=== PATIENT | female | born 1980 | race Caucasian/White ===

== ENCOUNTER 2018-05-27 17:00 | Outpatient (REF) | payer BC, SELFPAY ==
[2018-05-27 19:01] LABS: *AMPHETAMINES SCREEN URINE Negative (Negative); *BARBITURATES SCREEN URINE Negative (Negative); *BENZODIAZEPINES SCREEN URINE Negative (Negative); Cannabinoids THC Negative (Negative); Cocaine Screen,Urine Negative (Negative); METHADONE URINE SCREEN Negative (Negative); OPIATES URINE SCREEN Negative (Negative)
[2018-05-27 19:18] LABS: Tricyclic Antidepressants Negative (Negative)
[2018-06-01 14:35] LABS: Buprenorphine Negative; Norbuprenorphine Negative
== END 2018-05-27 17:20 ==
LOC: LBN 17:00
PROVIDERS: Visit Provider Advanced Practice Midwife
DX: Z34.91 Encounter for supervision of normal pregnancy, unspecified, first trimester (principal)
CPT/HCPCS: 80307; 87086

== ENCOUNTER 2018-05-31 09:29 | Outpatient (CLI) | payer BC, SELFPAY ==
[2018-05-31 09:49] LABS: Glucose,1 Hr (Glucola) 86 mg/dL (80-140)
[2018-05-31 11:01] LABS: TSH (W/Ref FT4) 1.36 uIU/mL (0.358-3.74)
== END 2018-05-31 09:49 ==
PROVIDERS: Visit Provider Advanced Practice Midwife
DX: Z34.91 Encounter for supervision of normal pregnancy, unspecified, first trimester (principal); Z01.84 Encounter for antibody response examination; Z68.32 Body mass index [BMI] 32.0-32.9, adult
CPT/HCPCS: 36415; 82950; 86850; 86900; 86901; 84443

== ENCOUNTER 2018-07-10 10:27 | Outpatient (CLI) | payer BC, SELFPAY ==
[2018-07-11 17:08] LABS: AFP 23.9 ng/mL; Cigarette smoking status non-smoker; GA used in risk estimate Scan estimate; IVF Pregnancy Yes; Initial or repeat testing Initial testing; Insulin dependent diabetes No; Maternal Weight 246 lbs; Number of Fetuses 1; Physician Phone Number 802-748-7300; Prev Pregnancy w/NTD No; RECOMMENDED FOLLOW UP None.; Results Summary Normal risk
== END 2018-07-10 10:47 ==
PROVIDERS: PCP Family Medicine; Visit Provider Advanced Practice Midwife
DX: Z34.92 Encounter for supervision of normal pregnancy, unspecified, second trimester (principal); Z36.89 Encounter for other specified antenatal screening
CPT/HCPCS: 36415; 82105

== ENCOUNTER 2018-07-26 00:29 | Outpatient (CLI) | payer BC, SELFPAY ==
--- NOTE | 2018-07-26 10:13 | DI.US_ITS ---
SYMPTOM/DIAGNOSIS: GROWTH AND ANATOMY, Z33.3 OB ULTRASOUND: There are no prior comparison exams. The fetus was in variable position. The placenta is anterior and left sided. The biometric measurements correspond to 20 weeks , zero days. No abnormalities are seen. The amniotic fluid amount appears visually normal. IMPRESSION: survey is within normal limits. Many abnormalities cannot be diagnosed. A normal exam does not exclude a congenital anomaly. Radiology No. [id number] LMP: Exam Date:07/26/18 [facility] wks days on EDC ([facility]) 12/21/18 Confirmed: HISTORY: GROWTH/ANATOMY ---- PREDICTED GESTATIONAL AGE NUMBER 18 +6 weeks with a range of 17 +6 week to 19 +6 weeks. 1 Determined by_XX__1STUS___LMP___HISTORY Info. pertaining to fetus # PLACENTA PRESENTATION Grade I Cephalic___ Anterior_XX__Posterior___ Breech____ Right Left__XX Transverse(head right___ Fundal___Low-lying___Previa___ Transverse(head left___ Varying___XX___ BIOMETRY AMNIOTIC FLUID BPD: 46 mm 19 +6 weeks Normal HC: 172 mm 19 +6 weeks AC: 145 mm 19 +6 weeks FL: 33 mm 20 +2 weeks AMNIOTIC FLUID INDEX >26 WK CRL: -- mm weeks Cisterna Magna: 33 mm CI: 80 RUQ: LUQ Cerebellum: 1.92 cm EFW: 330 grams 97% Percentile RLQ: LLQ Total: cms Composite AGE= 20 - wks EDC by US__12/13/18 BIOPHYSICAL PROFILE ANATOMY IDENTIFIED SCORE 0/2 Heart: 4-Chamber_X__Rate:BPM__130 BPM___ LVOT:__X RVOT:____X____ Amniotic Fluid(>2cms)____ Stomach:__X Kidneys:__X Respirations (>30 secs) Bladder:___X Post. Fossa:___X Body Flex/Extension 3 vessel cord:__X Ventricles:____X cord insertion:__X___ Lips:_X___ Extremity Flex/Extension spinal morphology:_X Nose:X Total Score= Palate:__X NS=not seen
== END 2018-07-26 00:49 ==
PROVIDERS: PCP Family Medicine; Visit Provider Advanced Practice Midwife
DX: Z34.92 Encounter for supervision of normal pregnancy, unspecified, second trimester (principal)
CPT/HCPCS: 76805

== ENCOUNTER 2018-10-02 09:52 | Outpatient (CLI) | payer BC, SELFPAY ==
[2018-10-02 10:16] LABS: HCT 36.3 % (36.0-46.0); HGB 12.1 g/dL (12.0-15.5); Mean Corp. HGB Concentration 33.3 g/dL (32.0-36.0); Mean Corpuscular Hemoglobin 30.9 pg (27.0-33.0); Mean Corpuscular Volume 92.8 fL (80-95); Mean Platelet Volume 10.1 fL (8.0-11.0); Platelet Count 153 x1000/uL (130-400); RBC 3.91 m/cumm (4.00-5.20); RBC Distribution Width 12.9 % (11.7-14.6)
[2018-10-02 10:23] LABS: Glucose,1 Hr (Glucola) 95 mg/dL (80-140)
== END 2018-10-02 10:12 ==
PROVIDERS: Advanced Practice Midwife; PCP Family Medicine; Visit Provider Nurse Practitioner
DX: Z34.92 Encounter for supervision of normal pregnancy, unspecified, second trimester (principal)
CPT/HCPCS: 36415; 82950; 85027

== ENCOUNTER 2018-11-04 01:38 | Outpatient (CLI) | payer BC, SELFPAY ==
--- NOTE | 2018-11-04 09:02 | DI.US_ITS ---
Many abnormalities cannot be diagnosed. A normal exam does not exclude a congenital anomaly. Radiology No. LMP: Exam Date: 11/04/18 [facility] wks days on EDC ([facility]) 12/21/18 Confirmed: HISTORY: NOEMÍ, EFW, SIZE GREATER THAN DATES PREDICTED GESTATIONAL AGE NUMBER 33.2 weeks with a range of 32.2 week to 34.2 weeks. 1 Determined by_X__1STUS___LMP___HISTORY Info. pertaining to fetus # PLACENTA PRESENTATION Grade I-II Cephalic__X_ Anterior_X__Posterior___ Breech____ Right Left___X____ Transverse(head right___ Fundal___Low-lying___Previa___ Transverse(head left___ Varying BIOMETRY AMNIOTIC FLUID BPD: 89 mm 35.5 weeks Normal HC: 319 mm 35.6 weeks AC: 329 mm 36.6 weeks FL: 73 mm 37.4 weeks AMNIOTIC FLUID INDEX >26 WK CRL: mm weeks Cisterna Magna: mm CI: 0.85 RUQ:__2.3____LUQ___5.0 Cerebellum: cm EFW: 3021 grams > chart measurment Percentile RLQ:_3.1____LLQ__4.9 Total:____15.2____cms Composite AGE= 36.4 wks EDC by US___11/28/18 BIOPHYSICAL PROFILE ANATOMY IDENTIFIED SCORE 0/2 Heart: 4-Chamber___Rate:BPM__153___ LVOT: RVOT: Amniotic Fluid(>2cms)____ Stomach:__X Kidneys: Respirations (>30 secs) Bladder: Post. Fossa: Body Flex/Extension 3 vessel cord: Ventricles: cord insertion: Lips:____ Extremity Flex/Extension spinal morphology: Nose: Total Score= The fetus is in cephalic position. The placenta is anterior. The biometric measurements correspond to 36 weeks 4 days which is 3 weeks greater than expected based on previous dating. The estimated eight is above the 99th percentile. The amniotic fluid index appears normal at 15.2. IMPRESSION: size and weight are greater than expected by previous dating by approximately 3 weeks.
== END 2018-11-04 01:58 ==
PROVIDERS: PCP Family Medicine; Visit Provider Advanced Practice Midwife
DX: O26.843 Uterine size-date discrepancy, third trimester (principal); Z34.93 Encounter for supervision of normal pregnancy, unspecified, third trimester
CPT/HCPCS: 76816

== ENCOUNTER 2018-11-06 09:58 | Outpatient (CLI) | payer BC, SELFPAY ==
[2018-11-06 10:19] LABS: Glucose,1 Hr (Glucola) 101 mg/dL (80-140)
[2018-11-06 10:22] LABS: Hemoglobin A1C 5.4 % (4.5-6.2)
== END 2018-11-06 10:18 ==
PROVIDERS: PCP Nurse Practitioner Family; Visit Provider Advanced Practice Midwife
DX: Z34.93 Encounter for supervision of normal pregnancy, unspecified, third trimester (principal); O09.523 Supervision of elderly multigravida, third trimester
CPT/HCPCS: 36415; 82950; 83036

== ENCOUNTER 2018-11-20 12:15 | Outpatient (REF) | payer BC, SELFPAY | END 2018-11-20 12:35 | LOC: LBN 12:15 | PROVIDERS: PCP Nurse Practitioner Family; Visit Provider Advanced Practice Midwife | DX: Z34.93 Encounter for supervision of normal pregnancy, unspecified, third trimester (principal); Z36.85 Encounter for antenatal screening for Streptococcus B | CPT/HCPCS: 87081 ==

== ENCOUNTER 2018-12-04 03:51 | Outpatient (CLI) | payer BC, SELFPAY ==
--- NOTE | 2018-12-04 08:50 | DI.US_ITS ---
Many abnormalities cannot be diagnosed. A normal exam does not exclude a congenital anomaly. Radiology No. LMP: Exam Date: [facility] wks days on EDC ([facility]) Confirmed: HISTORY: SIZE GREATER THAN DATES, MACROSOMIA, 036.60X0 PREDICTED GESTATIONAL AGE NUMBER 37.4 weeks with a range of 36.4 week to 38.4 weeks. 1 Determined by___1STUS___LMP_X__HISTORY Info. pertaining to fetus # PLACENTA PRESENTATION Grade II Cephalic__X_ Anterior_X__Posterior___ Breech____ Right Left__X Transverse(head right___ Fundal___Low-lying___Previa___ Transverse(head left___ Varying BIOMETRY AMNIOTIC FLUID BPD: 96 mm 39.2 weeks Normal HC: 342 mm 39.3 weeks AC: 350 mm 38.6 weeks FL: 79 mm 40.3 weeks AMNIOTIC FLUID INDEX >26 WK CRL: mm weeks Cisterna Magna: mm CI: 87.3 RUQ:___6.31___LUQ___4 Cerebellum: cm EFW: 3765 grams 94th Percentile RLQ:_4.21 LLQ__2.16 Total:__16.7 cms Composite AGE= 39.4 wks EDC by US____12/07/18 BIOPHYSICAL PROFILE ANATOMY IDENTIFIED SCORE 0/2 Heart: 4-Chamber___Rate:BPM__150___ LVOT: RVOT: Amniotic Fluid(>2cms)____ Stomach: Kidneys: Respirations (>30 secs) Bladder: Post. Fossa: Body Flex/Extension 3 vessel cord: Ventricles: cord insertion: Lips:____ Extremity Flex/Extension spinal morphology: Nose: Total Score= Palate: NS=not seen Please see the OB ultrasound worksheet for complete details.
== END 2018-12-04 04:11 ==
PROVIDERS: PCP Nurse Practitioner Family; Visit Provider Advanced Practice Midwife
DX: O36.63X1 Maternal care for excessive fetal growth, third trimester, fetus 1 (principal)
CPT/HCPCS: 76816

== ENCOUNTER 2018-12-18 10:45 | Inpatient (IN) | payer BC, SELFPAY ==
[2018-12-18 12:15] LABS: HCT 38.2 % (36.0-46.0); HGB 12.6 g/dL (12.0-15.5); Mean Corpuscular Hemoglobin 30.7 pg (27.0-33.0); Mean Corpuscular Volume 92.9 fL (80-95); Mean Platelet Volume 10.9 fL (8.0-11.0); Platelet Count 163 x1000/uL (130-400); RBC 4.11 m/cumm (4.00-5.20); RBC Distribution Width 13.3 % (11.7-14.6); White Blood Cell Count 10.09 k/cumm (4.4-10.8)
[2018-12-18] MEDS: Oxytocin 10 UNITS/ML VIAL IM (16:45)
[2018-12-18] MEDS: Lidocaine 1% Pres-Free 5 ML VIAL IJ (18:32)
[2018-12-19 07:59] LABS: HCT 35.9 % (36.0-46.0); HGB 11.9 g/dL (12.0-15.5); Mean Corp. HGB Concentration 33.1 g/dL (32.0-36.0); Mean Corpuscular Hemoglobin 30.8 pg (27.0-33.0); Platelet Count 173 x1000/uL (130-400); RBC 3.86 m/cumm (4.00-5.20); RBC Distribution Width 13.2 % (11.7-14.6)
== END 2018-12-19 15:30 | disposition home or self-care (01) | DRG 807 ==
PROVIDERS: Admitting Provider Advanced Practice Midwife; PCP Nurse Practitioner Family; Visit Provider Advanced Practice Midwife
DX: O70.0 First degree perineal laceration during delivery (principal); Z37.0 Single live birth; O77.0 Labor and delivery complicated by meconium in amniotic fluid; O63.0 Prolonged first stage (of labor); Z3A.39 39 weeks gestation of pregnancy; O87.4 Varicose veins of lower extremity in the puerperium
CPT/HCPCS: 36415; 85027; 86850; 86900; 86901; G0378; J2590

== ENCOUNTER 2020-07-08 12:13 | Outpatient (REF) | payer BC, SELFPAY ==
--- NOTE | 2020-07-08 11:00 | PAPFT_PTH ---
PATIENT: Cira Batista LOC: [facility] U#:[id number] AGE/SX: 39/F ROOM: RE07/08/[address]: Dory Romero RN : 1980 BED: DIS: 07/08/2020 SPEC #: [id number] RECD: 07/08/20 17:46 STATUS: ALTAGRACIA REQ #: [id number] REMEDIOS: 07/08/20 11:[address]: Dory Romero DEPT: [facility] Cytology RECD BY: Suzy Connell ENTERED: 07/08/20 17:46 SP TYPE: PAPFT OTHR DR: Nusrat Tapia Tissues: 1 - CX/ENDOCX FOR PAP SMEARS Procedures: PAP THIN PREP/UVM Screening HPV DNA PROBE Comments: [id number] ([id number] [facility])
[2020-07-08 15:23] LABS: *AMPHETAMINES SCREEN URINE Negative (Negative); *BARBITURATES SCREEN URINE Negative (Negative); *BENZODIAZEPINES SCREEN URINE Negative (Negative); Cannabinoids THC Negative (Negative); Cocaine Screen,Urine Negative (Negative); METHADONE URINE SCREEN Negative (Negative); OPIATES URINE SCREEN Negative (Negative)
[2020-07-08 15:48] LABS: Tricyclic Antidepressants Negative (Negative)
[2020-07-11 01:58] LABS: Chlamydia amplified RNA Negative (Negative); N gonorrhoeae amplified RNA Negative (Negative); Source CERVIX
[2020-07-15 11:47] LABS: Buprenorphine Negative; Norbuprenorphine Negative
== END 2020-07-08 12:33 ==
LOC: LBN 12:13
PROVIDERS: PCP Nurse Practitioner Family; Visit Provider Advanced Practice Midwife
DX: Z12.4 Encounter for screening for malignant neoplasm of cervix (principal); Z11.51 Encounter for screening for human papillomavirus (HPV); Z34.91 Encounter for supervision of normal pregnancy, unspecified, first trimester
CPT/HCPCS: 80307; 87491; 87591; 88142; 87086; 87624

== ENCOUNTER 2020-08-05 03:25 | Outpatient (CLI) | payer BC, SELFPAY ==
[2020-08-05 12:17] LABS: Abs Immature Grans 0.01 10^3/uL (0.0-0.06); Absolute Basophil Count 0.01 10^3/uL (0.0-0.2); Absolute Eosinophil Count 0.11 10^3/uL (0.0-0.7); Absolute Lymphocyte Count 1.67 10^3/uL (1.2-3.4); Absolute Monocyte Count 0.44 10^3/uL (0.1-0.8); Absolute Neutrophil Count 4.75 10^3/uL (1.2-6.7); Basophils % 0.1; Eosinophils % 1.6; HCT 35.9 % (36.0-46.0); HGB 11.9 g/dL (11.2-15.7); Immature Grans % 0.1; Lymphocytes % 23.9; MCH 30.6 pg (27.0-33.0); MCHC 33.1 % (32.0-36.0); MCV 92.3 fL (80-95); MPV 9.9 fL (8.0-11.0); Monocytes % 6.3; Nucleated RBC 0 %; Platelet Count 177 10^3/uL (130-400); RBC 3.89 10^6/uL (3.93-5.22); RDW 12.2 % (11.7-14.6); RDW-SD 41.4 fL; WBC 6.99 10^3/uL (4.4-10.8)
[2020-08-05 12:25] LABS: Glucose,1 Hr (Glucola) 100 mg/dL (80-140)
[2020-08-05 12:54] LABS: TSH (W/Ref FT4) 0.98 uIU/mL (0.36-3.74)
[2020-08-06 10:06] LABS: HIV-1/2 Ag & Ab Screen Negative (Negative)
[2020-08-06 10:26] LABS: Hepatitis C Ab w Rflx HCV PCR Negative (Negative)
[2020-08-06 11:21] LABS: Varicella IgG Antibody Positive (See Note)
[2020-08-06 11:25] LABS: Rubella IgG Ab (UVM) Positive (See Note)
[2020-08-06 16:50] LABS: Syphilis Total Ab w/Reflex Nonreactive (Nonreactive)
== END 2020-08-05 03:45 ==
PROVIDERS: PCP Nurse Practitioner Family; Visit Provider Advanced Practice Midwife
DX: Z34.91 Encounter for supervision of normal pregnancy, unspecified, first trimester (principal); Z01.84 Encounter for antibody response examination; Z11.4 Encounter for screening for human immunodeficiency virus [HIV]; Z11.59 Encounter for screening for other viral diseases
CPT/HCPCS: 36415; 82950; 86787; 86803; 86850; 86900; 86901; 87389; 84443; 85025; 86762; 86780

== ENCOUNTER 2020-09-02 01:49 | Outpatient (CLI) | payer BC, SELFPAY ==
--- NOTE | 2020-09-02 07:15 | DI.US_ITS ---
EXAM: US OB 2-3 TRIMESTER CLINICAL HISTORY: routine pnc,Z34.90. TECHNIQUE: Transabdominal obstetrical ultrasound was performed. COMPARISON: US US OB NOEMÍ weight from 12/04/2018 FINDINGS: There is a single viable intrauterine gestation with cardiac activity identified-139 bpm. Amniotic fluid: There is a normal amount of amniotic fluid. Placental location: The placenta is anterior grade 1,with no evidence of placenta previa. ANATOMY: A 3 vessel umbilical cord is seen. A four-chamber cardiac view was obtained. Right and left ventricular outflow tracts were imaged. There are no obvious abnormalities of the spinal column evident. There is no obvious abnormal ity of the anterior abdominal wall. stomach and urinary bladder are identified and there is no evidence of hydronephrosis. No abnormalities of the upper lip region are identified. No evidence of choroid plexus cysts i n the brain. Dating parameters place this at approximately 18 weeks and 6 days gestational age. BPD measures 18 weeks and 4 days HC measures 18 weeks and 6 days AC measures 19 weeks and 0 days FL measures 19 weeks and 0 days Estimated weight is 267 gm-0 pounds 9 ounces Fetus is at the 61st percentile on the Hadlock scale. IMPRESSION:: Single viable intrauterine gestation which is approximately 18 weeks and 6 days gestati onal age, implying an SAMANTHA of January 28, 2021. There are no obvious anomalies evident on today's study. The placenta is anterior with no evidence of placenta previa. There is a normal amount of amniotic fluid. DATA REPOSITORY:
== END 2020-09-02 02:09 ==
PROVIDERS: PCP Nurse Practitioner Family; Visit Provider Advanced Practice Midwife
DX: Z34.92 Encounter for supervision of normal pregnancy, unspecified, second trimester (principal)
CPT/HCPCS: 76805

== ENCOUNTER 2020-09-02 03:26 | Outpatient (CLI) | payer BC, SELFPAY ==
[2020-09-03 08:20] LABS: Hepatitis B Surface Ag Negative (Negative)
[2020-09-07 11:11] LABS: Calculated age at EDD 40 years; Cigarette smoking status non-Smoker; GA used in risk estimate Scan estimate; IVF Pregnancy Yes; Initial or repeat testing Initial testing; Insulin dependent diabetes No; Maternal Weight 243 lbs; Number of Fetuses 1; Physician Phone Number 802-748-7300; Prev Pregnancy w/NTD No; RECOMMENDED FOLLOW UP None.; Results Summary Normal risk
== END 2020-09-02 03:46 ==
PROVIDERS: PCP Nurse Practitioner Family; Visit Provider Advanced Practice Midwife
DX: Z34.92 Encounter for supervision of normal pregnancy, unspecified, second trimester (principal); Z36.89 Encounter for other specified antenatal screening; Z11.59 Encounter for screening for other viral diseases
CPT/HCPCS: 36415; 87340; 82105

== ENCOUNTER 2020-11-25 02:56 | Outpatient (CLI) | payer BC, SELFPAY ==
[2020-11-25 10:23] LABS: HCT 34.2 % (36.0-46.0); HGB 11.3 g/dL (11.2-15.7); MCH 31.3 pg (27.0-33.0); MCV 94.7 fL (80-95); Platelet Count 133 10^3/uL (130-400); RBC 3.61 10^6/uL (3.93-5.22); RDW 12.7 % (11.7-14.6); WBC 8.25 10^3/uL (4.4-10.8)
[2020-11-25 10:30] LABS: Glucose,1 Hr (Glucola) 97 mg/dL (80-140)
== END 2020-11-25 02:57 | disposition home or self-care (01) ==
LOC: LBO 02:56
PROVIDERS: PCP Nurse Practitioner Family; Visit Provider Advanced Practice Midwife
DX: Z34.93 Encounter for supervision of normal pregnancy, unspecified, third trimester (principal); Z3A.30 30 weeks gestation of pregnancy
CPT/HCPCS: 36415; 82950; 85027

== ENCOUNTER 2021-01-07 13:56 | Outpatient (REF) | payer BC, SELFPAY ==
[2021-01-07 15:29] LABS: *AMPHETAMINES SCREEN URINE Negative (Negative); *BARBITURATES SCREEN URINE Negative (Negative); *BENZODIAZEPINES SCREEN URINE Negative (Negative); Cannabinoids THC Negative (Negative); Cocaine Screen,Urine Negative (Negative); METHADONE URINE SCREEN Negative (Negative); OPIATES URINE SCREEN Negative (Negative)
[2021-01-07 15:45] LABS: Tricyclic Antidepressants Negative (Negative)
[2021-01-13 09:34] LABS: Buprenorphine Negative ng/mL (Cutoff: 5.0); Norbuprenorphine Negative ng/mL (Cutoff: 2.5)
== END 2021-01-07 13:57 | disposition home or self-care (01) ==
LOC: LBN 13:56
PROVIDERS: PCP Nurse Practitioner Family; Visit Provider Advanced Practice Midwife
DX: Z34.93 Encounter for supervision of normal pregnancy, unspecified, third trimester (principal)
CPT/HCPCS: 80307; 87081

== ENCOUNTER 2021-01-11 08:32 | Outpatient (CLI) | payer BC, SELFPAY ==
[2021-01-11 10:31] VITALS: BP 121/61; PULSE 86; TEMP 36.9
[2021-01-11 10:54] VITALS: BP 121/61; PULSE 86
--- NOTE | 2021-01-11 11:43 | W.OBNST ---
Date of service: 01/11/21 Time of Service: 11:44 NST Evaluation Reason for NST Reasons for Nonstress Test: ADVANCED MATERNAL AGE Gestational Age Gestational Age in Weeks and Days: 37 Weeks and 3Days Test and Monitor Explained Test/Monitor Explained: Test Explained, Monitor Explained and Patient Verbalized Understanding Vital Signs Blood Pressure: 121/61 Pulse: 86 Temperature: 98.4 F Urine Results Urine Protein: Positive Urine Ketones: Negative Urine Glucose: Negative Urine Blood: Positive NST Information Date on Monitor: 01/11/21 Time on Monitor: 10:40 Date off Monitor: 01/11/21 Time off Monitor: 11:29 Total Time on Monitor: 49 NST Interventions: PO Hydration NST Evaluation Patient States Movement: Present FHR Baseline: 140 Variability: Moderate 6-25 bpm Accelerations: 10x10 Decelerations: None NST Results: Reactive Note NST Note Note: Fetus very active with prolonged accelerations over 150. Baseline came down to 135 with accellerations over 150. Returning 01/14 for NST. Induction planned for 01/21. NST Reviewed and Verified by: Vanesa Martinez
[2021-01-11 11:45] VITALS: BP 121/61; PULSE 86; TEMP 36.9
== END 2021-01-11 11:30 | disposition home or self-care (01) ==
LOC: BCD 08:32 → OBS 08:39
PROVIDERS: PCP Nurse Practitioner Family; Visit Provider Advanced Practice Midwife
DX: O09.523 Supervision of elderly multigravida, third trimester (principal); Z3A.37 37 weeks gestation of pregnancy
CPT/HCPCS: 59025

== ENCOUNTER 2021-01-14 07:23 | Outpatient (CLI) | payer BC, SELFPAY ==
[2021-01-14 10:06] VITALS: BP 103/61; PULSE 98; TEMP 208.9; TEMP 98.3
[2021-01-14 10:13] VITALS: BP 103/61; PULSE 98
--- NOTE | 2021-01-14 10:35 | W.OBNST ---
Date of service: 01/14/21 Time of Service: 10:35 NST Evaluation Reason for NST Reasons for Nonstress Test: ADVANCED MATERNAL AGE Gestational Age Gestational Age in Weeks and Days: 37 Weeks and 5Days Test and Monitor Explained Test/Monitor Explained: Test Explained, Monitor Explained and Patient Verbalized Understanding Vital Signs Blood Pressure: 103/61 Pulse: 98 Temperature: 208.9 F NST Information Date on Monitor: 01/14/21 Time on Monitor: 10:15 NST Interventions: None NST Evaluation Patient States Movement: Present Variability: Moderate 6-25 bpm Accelerations: 15x15 Decelerations: None NST Results: Reactive Note NST Note Note: Feeling well. No complaints. NST due to AMA. will return for NST on 01/17. Today's test is reactive and reassuring CAT MARCELLE NST Reviewed and Verified by: Vanesa Cardoza
[2021-01-14 10:36] VITALS: BP 103/61; PULSE 98; TEMP 208.9; TEMP 98.3
== END 2021-01-14 10:41 | disposition home or self-care (01) ==
LOC: BCD 07:27 → OBS 10:05
PROVIDERS: PCP Nurse Practitioner Family; Visit Provider Advanced Practice Midwife
DX: O09.523 Supervision of elderly multigravida, third trimester (principal); Z3A.37 37 weeks gestation of pregnancy
CPT/HCPCS: 59025

== ENCOUNTER 2021-01-18 07:58 | Outpatient (CLI) | payer BC, SELFPAY ==
[2021-01-18 10:12] VITALS: BP 121/71; PULSE 92; TEMP 37.6
[2021-01-18 10:36] VITALS: BP 121/71; PULSE 92
[2021-01-18 19:15] VITALS: BP 121/71; PULSE 92; TEMP 37.6
--- NOTE | 2021-01-18 19:15 | W.OBNST ---
Date of service: 01/18/21 Time of Service: 19:15 NST Evaluation Reason for NST Reasons for Nonstress Test: ADVANCED MATERNAL AGE Gestational Age Gestational Age in Weeks and Days: 38 Weeks and 3Days Test and Monitor Explained Test/Monitor Explained: Test Explained, Monitor Explained and Patient Verbalized Understanding Vital Signs Blood Pressure: 121/71 Pulse: 92 Temperature: 99.7 F NST Information Date on Monitor: 01/18/21 Time on Monitor: 10:23 Date off Monitor: 01/18/21 Time off Monitor: 11:08 Total Time on Monitor: 45 NST Interventions: PO Hydration NST Evaluation Patient States Movement: Present FHR Baseline: 125 Variability: Moderate 6-25 bpm Accelerations: 15x15 Decelerations: None NST Results: Reactive Note NST Note Note: Returns 01/21 for NST and sono for EFW/NOEMÍ NST Reviewed and Verified by: Odalys Lowe
== END 2021-01-18 11:09 | disposition home or self-care (01) ==
LOC: BCD 08:06 → OBS 10:10
PROVIDERS: PCP Nurse Practitioner Family; Visit Provider Advanced Practice Midwife
DX: O09.523 Supervision of elderly multigravida, third trimester (principal); Z3A.38 38 weeks gestation of pregnancy
CPT/HCPCS: 59025

== ENCOUNTER 2021-01-21 04:13 | Outpatient (CLI) | payer BC, SELFPAY ==
--- NOTE | 2021-01-21 07:00 | DI.US_ITS ---
Exam(s) US OB NOEMÍ WEIGHT EXAM: US OB NOEMÍ WEIGHT CLINICAL HISTORY: weight and NOEMÍ, history of 11lb baby,AMA,O09.299 TECHNIQUE: Ultrasound performed using standard protocol. COMPARISON: US US OB 2-3 TRIMESTER from 09/02/2020 FINDINGS: Ob ultrasound was performed utilizing limited 3rd trimester protocol. biometry is consistent w ith gestational age of 40 weeks consistent with near term gestation. The estimated weight is 3 939 grams which is at the 89th percentile for predicted gestational age. Placenta is anterior with no placenta previa. The amniotic fluid index is 16.4 and visually there is a normal quantity of amniotic fluid. Fetus is in cephalic presentation and heart rate is 153 BPM. IMPRESSION: DATA REPOSITORY:
== END 2021-01-21 04:33 ==
PROVIDERS: PCP Nurse Practitioner Family; Visit Provider Advanced Practice Midwife
DX: O09.293 Supervision of pregnancy with other poor reproductive or obstetric history, third trimester (principal); Z3A.40 40 weeks gestation of pregnancy; O09.523 Supervision of elderly multigravida, third trimester
CPT/HCPCS: 76816

== ENCOUNTER 2021-01-21 14:21 | Outpatient (CLI) | payer BC, SELFPAY ==
[2021-01-21 14:31] VITALS: BP 139/84; PULSE 100; TEMP 36.9
[2021-01-21 14:33] VITALS: BP 139/84; PULSE 100
[2021-01-21 14:54] VITALS: BP 132/87; PULSE 91
--- NOTE | 2021-01-21 16:09 | W.OBNST ---
Date of service: 01/21/21 Time of Service: 15:45 NST Evaluation Reason for NST Reasons for Nonstress Test: ADVANCED MATERNAL AGE Gestational Age Gestational Age in Weeks and Days: 38 Weeks and 6Days Test and Monitor Explained Test/Monitor Explained: Test Explained, Monitor Explained and Patient Verbalized Understanding Vital Signs Blood Pressure: 139/84 Pulse: 100 Temperature: 98.4 F NST Information Date on Monitor: 01/21/21 Time on Monitor: 14:27 Date off Monitor: 01/21/21 Time off Monitor: 15:54 Total Time on Monitor: 87 NST Interventions: PO Hydration NST Evaluation Patient States Movement: Present FHR Baseline: 130 Variability: Moderate 6-25 bpm Accelerations: 15x15 Decelerations: None NST Results: Reactive Note NST Note Note: NST due to AMA. VE also done to assess for cervical ripeness for induction. 3 posterior and soft. NST is reactive and reassuring. US today shows adequate NOEMÍ. Will have patient return 01/25/21 at 10 am for NST and further evaluation or as indicated by signs of labor or any movement changes. Patient and adoptive parents agree to this plan and deny questions. ODELL NST Reviewed and Verified by: Vanesa Cardoza
[2021-01-21 16:11] VITALS: BP 139/84; PULSE 100; TEMP 36.9
== END 2021-01-21 15:55 | disposition home or self-care (01) ==
LOC: BCD 14:23 → OBS 14:28
PROVIDERS: PCP Nurse Practitioner Family; Visit Provider Advanced Practice Midwife
DX: O09.523 Supervision of elderly multigravida, third trimester (principal); Z3A.38 38 weeks gestation of pregnancy
CPT/HCPCS: 59025

== ENCOUNTER 2021-01-25 09:10 | Inpatient (IN) | payer BC, SELFPAY ==
[2021-01-25] VITALS (20 sets, daily range): BP systolic 128–155; BP diastolic 73–96; PULSE 71–91; RESP 12–16; TEMP 36.6–37.3; O2SAT 96
--- NOTE | 2021-01-25 10:28 | W.PM.OBHPL1 ---
Date of service: 01/25/21 Time of Service: 10:29 Assessment and Plan Assessment and plan (1) Active labor at term: Start date: 01/25/21 Start time: 10:36 Status: Acute Assessment and plan: Admit, CBC/Type and screen and COVID test to be done. Will place IV saline lock. Discussed delivery plan, FOB Will will be at bedside to have baby delivered into his arms for skin to skin. Kory plans to cut cord. They will assume the baby's care and transition while Cira's support will be Walt. Expect NVD. We did discuss that due to G 6 P5 status and BMI there is some increased risk for PPH. Active management reviewed and will plan pitocin IM and additional measures as indicated. Denies questions and is happy with plan of care.ODELL (2) Surrogate in third trimester: Status: Acute OB-HPI Labor/Delivery History of Present Illness Reason for Visit: Irregular uterine contractions at term Chief Complaint: Uterine Contractions. SAMANTHA Calculator Estimated Delivery Date Method Current WG Current Estimate 01/30/21 Ultrasound #1 39w 2d Comments: states regular contractions began at 0600 and denies ROM or show. Reports active baby. The Father's are here and in room near patient's room. This is surrogate with Kory as biological father and egg donor of a 32 year old woman. Cira has been surrogate for this couple in the past as well. Cira's Walt is at bedside and supportive of Cira. ODELL History of Present Expected Delivery Route/Plan NVSD - CNM FOB/parents - Kory (bio) and Will Pt's Walt will be pt's labor support BG GBS Negative AMA >40 at delivery: testing at 37 wks, NOEMÍ @ 38 wks, IOL by 40 wks discussed Specific Issues/Plan 1. IVF surrogate. 2nd surrogacy for pt and couple Will & Kory. Kory is FOB. Egg donor ~ 32 yo @ time of retrieval. All desired optional genetic labs were obtained previously and declination for same signed by pt @ IOB 07/08/20. IVF was managed by Tito 07/09/20: Tel. call to pt to request that she have all genetic testing done on embryo w/ results sent [facility]to [facility]. H/O LGA infant w/ last 11.2 lbs. w/o any c/o. Needs early gct for that & bmi>30. Early Glucola result @ 14 bnr=[id number] Risk : Increased a. Shoulder dystocia 2` prev. lga @11.3 lbs & bmi >30 b. Pre-eclampsia : AMA status & BMI> 30 As of IOB taking low dose asa. c. PPH Grand multiparity & prev lga . 2. No active insurance information as of 07/16, PA process for [place]/CF/SMA unable to be done. 2a. AFP single- marker testing neg 3. Kory is working to have COVID vaccine done and Will has had his. They are aware of quarantine requirements as well. 3a. Kory's 2nd vaccine will be done 12/23, Cira's 2nd will be 12/27 Assessment: History Reviewed & Current Informed Consent Informed Consent: Other (discussed potential for PPH and having IV site in place, patient agrees to this intervention.ODELL) Review of Systems All systems reviewed & are unremarkable except as noted in HPI and below PFSH Medical History Elderly multigravida in first trimester History of tobacco use Problem with vaginal pessary unable to successfully fit. Pt referred to [facility]. Uterine prolapse 12/2019. Unable to find pessary that will fit. Pt wants to postpone surgery until she has completed childbearing. Will refer to [facility]. Social History Smoking/Tobacco Use Status: Former Tobacco Use Tobacco: How many years used: 15 Smoking risk assessment performed?: Yes Alcohol Intake: former Substance use type: does not use Number of Children: 4 Female Reproductive History Menstrual control method: none History History 5 Para 5 Hx # Term Pregnancies 5 Multiple births 0 Hx # Pregnancies 0 Ectopic pregnancies 0 AB induced 0 Hx Number of Living Children 5 AB spontaneous 0 Past Pregnancies Del. Date GA/Weeks # Outcome Route Wgt Sex Labor Lgth Anesthesia Location Prov Complic Unknown 01/31/09 40 No Successful vaginal 8 lb 12 oz Female 12 [facility] 09/01/10 40 No Successful vaginal 8 lb 10 oz Male 08/15/13 41 No Successful vaginal 8 lb 2 oz Female home 10/03/15 40 No Successful vaginal 8 lb 8 oz Female home 12/18/18 39 No Successful vaginal 11 lb 3 oz Female w/o c/o. Vanesa Chowdhurywillieheather [place] Delivery Date: surrogate Vanesa Martinez Delivery Date: 01/31/09 Cindy w/o c/o cnm al MICHI EDMOND Delivery Date: 09/01/[address] [place] [facility] [address] joselyn damico FELI,ANETamie Delivery Date: 08/15/13 Tanya home MICHI EDMOND Delivery Date: 10/03/15 precipitous Erika Vanesa Martinez Delivery Date: 12/18/18 w/o c/o. LELONG,ANEA Meds Allergies and Home Medications Allergies Allergy/AdvReac Type Severity Reaction Status Date / Time seasonal allergies Allergy Mild Uncoded 01/11/21 09:50 Home Medications Medication Instructions Recorded Confirmed Type cholecalciferol (vitamin D3) 25 1,000 unit PO DAILY 05/27/18 11/03/19 History mcg (1,000 unit) capsule prenat.vits,cristian,[id number] 1 tab PO DAILY 05/27/18 11/03/19 History aspirin 81 mg tablet,delayed 81 mg PO DAILY 11/03/19 11/03/19 History release Exam Constitutional Constitutional: no acute distress and obese Comments: Working well with contractions. Does not intend to use any medications or inhaled support, declines birthing ball, states she just does my own thing Will allow patient to be off the monitor after 20 minutes of tracing if CAT I. KH Detailed Labor and Delivery Exam Dilation: 4 Effacement (%): 90 station: -2 Cervix position: mid Consistency: soft Blair Score: Cervical Points Exam 0 1 2 3 Dilation Closed 1-2cm 3-4 cm 5-6cm Effacement 0-30% 40-50% 60-70% 80% Consistency Firm Medium Soft Station -3 -2 -1,0 +1,+2 Position Posterior Mid Anterior BLAIR Score(Cervical Ripeness Score): 11 Amniotic Membrane Status: Intact Contraction Frequency(min): 3 Contraction Duration(sec): 60 Contraction Intensity: Moderate/Strong Fetus A Heart Rate Baseline: 135 Monitor Accelerations: 15 X 15 Monitor Decelerations: None Variability: Moderate (6-25 BPM) Presentation: Cephalic Categories: Category I Est. Weight: 9 lb Est. Weight: 8lb 11 oz by US 01/21/21 Results Results Group Beta Strep: Negative Blood Type: B+ Rubella Status: Immune Varicella Immunity: Immune Lab Results: 1 hour 97, all other labs WNL.ODELL Risk Assessment Risk for Shoulder Dystocia Historical/Initial OB: POSITIVE FOR: Pre- BMI>30 and Previous Macrosomia (last delivery 11.3 lbs); NEGATIVE FOR: Pelvic Abnormality or Previous Shoulder Dystocia 40 Weeks: NEGATIVE FOR: EFW> 4500 gms, Maternal Weight Gain >40lb or Post Dates Increased Risk?: Yes Counseling: prev del. 11.3 w/o any c/o. al Delivery Plan @ 40 wks: NVD with plan to have stool available for supra pubic pressure if needed. Dr. Zayas is aware of patient's arrival and status.ODELL Risk for Pre-Eclampsia Daily Dose ASA Indicated: Yes Date Initiated/Initials: 07/08/20 al Yes, if one or more: NEGATIVE FOR: Hx Pre-E/Gest HTN, Chronic HTN, Multiple Gestation, Pre-gestational DM, Renal Disease, Systemic Lupus or APA Syndrome Yes, if 2 or more: POSITIVE FOR: Age>= 35 yrs and BMI>30; NEGATIVE FOR: Nulliparity, >10yr btwn pregnancies, ethinicty, Mother/Sister w/ Pre-E or Previous IUGR Risk for Post- Hemorrhage Initial: POSITIVE FOR: Grand Multiparity (# 6); NEGATIVE FOR: Multiple Gestation, Previous PPH, Known Clotting Deficiency or Anticoagulation At Risk?: Yes Counseled re: Active Management: Yes (@ I[facility] 07/08/20 al) Date/Initials: 07/08/20 al Risks Reviewed Risks Reviewed Upon Admission: Yes
[2021-01-25] MEDS: Normal Saline Flush 10 ML SYR IVP (11:16)
[2021-01-25 11:19] LABS: HGB 12.5 g/dL (11.2-15.7); MCH 31.3 pg (27.0-33.0); MCHC 33.8 % (32.0-36.0); MCV 92.5 fL (80-95); Platelet Count 171 10^3/uL (130-400); RDW 13.1 % (11.7-14.6); RDW-SD 44.5 fL; WBC 10.47 10^3/uL (4.4-10.8)
[2021-01-25 11:49] LABS: Source Nasal/Nares
[2021-01-25 12:32] LABS: COVID-19 PCR Negative (Negative)
--- NOTE | 2021-01-25 13:07 | W.PM.OBNL1 ---
Date of service: 01/25/21 Time of Service: 13:07 Informed Consent Informed Consent: Other (discussed potential for PPH and having IV site in place, patient agrees to this intervention.ODELL) Pelvic Exam Dilation: 6 Effacement (%): 100 station: -1 Cervix Position: mid Consistency: soft Vaginal Exam Presentation: Cephalic Contractions Monitor Mode: Palpation Contraction Frequency(min): 3-4 Contraction Duration(sec): 60-80 Intensity: Moderate/Strong Fetus A Monitor: Doppler Presentation: Cephalic Assessment and Plan Assessment and plan (1) Active labor at term: Status: Acute Assessment and plan: continue present management, database report writer has discussed with nursing staff that 10 units IM will be given and that IV pitoicn as well as cytotec should be immediately available to deliver, will review again in second stage huddle. Objective Temp Pulse Resp BP 98.4 F 91 H 16 140/96 H 01/25/21 11:12 01/25/21 13:05 01/25/21 11:12 01/25/21 13:05 Laboratory Results WBC 10.47 10^3/uL (4.4-10.8) 01/25/21 10:50 RBC 4.00 10^6/uL (3.93-5.22) 01/25/21 10:50 Hgb 12.5 g/dL (11.2-15.7) 01/25/21 10:50 Hct 37.0 % (36.0-46.0) 01/25/21 10:50 MCV 92.5 fL (80-95) 01/25/21 10:50 MCH 31.3 pg (27.0-33.0) 01/25/21 10:50 MCHC 33.8 % (32.0-36.0) 01/25/21 10:50 RDW 13.1 % (11.7-14.6) 01/25/21 10:50 Plt Count 171 10^3/uL (130-400) 01/25/21 10:50 MPV 11.0 fL (8.0-11.0) 01/25/21 10:50 COVID-19 Source Nasal/nares 01/25/21 11:08 SARS-CoV-2 (PCR) Negative (Negative) 01/25/21 11:08 Patient ABO/Rh B Positive 01/25/21 10:50 Antibody Screen Negative 01/25/21 10:50 Vital Signs Reviewed: Yes Notable Details: BP was taken immediately after contraction will repeat in 30 min Subjective Interval history since last seen: feeling contractions are getting stronger and occasional pressure down. Overall doing very well.KH Results Hemoglobin/Hematocrit: Hgb 12.5 g/dL (11.2-15.7) 01/25/21 10:50 Hct 37.0 % (36.0-46.0) 01/25/21 10:50
[2021-01-25] MEDS: Oxytocin 10 UNITS/ML VIAL IM (14:05)
--- NOTE | 2021-01-25 16:10 | W.OBDELIVERY ---
Date of service: 01/25/21 Time of Service: 16:10 OB Labor/ Delivery Information Baby A Delivery Delivery Method: Spontaneaous Presentation: Vertex Vertex Position: Right Occipital Anterior Cord Description-Baby A: 3 Vessels Amniotic Fluid: Clear Estimated Blood Loss: 350 Delivery Outcome: Liveborn Infant Transferred: Other (skin to skin with Will who is Father of baby then once cord was cut baby is with parents.) Note: 1556 live vaginal delivery after much reasurrance to patient that baby was descending with push effort and then with one very effective push baby delivered TON over intact perineum. Baby is given to Will (Father of baby) for skin to skin until cord stopped pulsing then was cut by Kory (other Father of baby) and baby was transitioned to being with the Fathers. Pitocin 10 units was given IM. Placenta delivered at 1601, intact. Fundus firms to U with massage. Perineum was inspected and found to be intact. 7 /8. 3 vessel cord. Cord bloods obtained. Sponge, needle and instrument count are correct. Cira's Walt is at her side and very supportive. Father's of baby that Cira surrogated this for are bonding well with the baby. Baby and patient are in stable condition. Sponge, needle and instrument count are correct. See completed delivery record for weight. Expect normal PP course. Providers Nurse Filter Tip Catcher: Vanesa Cardoza Nurse: Cate Powell Nurse: Tay Huang Labor/Delivery Information Steroids Given: None Reason Steroids Not Administered: N/A Group Beta Strep: Negative Antibiotics Administered: No Rubella Status: Immune Blood Type: B+ Varicella Immunity: Immune Medication in Delivery: none Maternal Complications: None Shoulder Dystocia: No Stages of Labor Onset of Labor Date: 01/25/21 Onset of Labor Time: 03:00 ROM Baby A: 01/25/21 ROM Baby A: 14:05 Delivery Date-Baby A: 01/25/21 Infant Delivery Time-Baby A: 15:56 Placenta Delivery Date-Baby A: 01/25/21 Placenta Delivery Time-Baby A: 16:01 Labor-Stage 3 Duration: 5 minutes Total Length of Labor-Baby A: 12 hours and 56 minutes Placenta Status: Delivered Baby A Gender: Female Gestational Status: Term (39-41.6 wks) Gestational Age in Weeks/Days: 39 Weeks and 3 Days
[2021-01-25] MEDS: Acetaminophen 325 MG TAB 650 MG PO (16:51)
[2021-01-25] MEDS: Ibuprofen 600 MG TAB PO (16:51)
--- NOTE | 2021-01-26 00:10 | NUR.NOTE ---
Pumping every 3-4 hours to establish milk supply.
[2021-01-26 07:30] VITALS: BP 132/84; PULSE 77; RESP 14; TEMP 37.1
--- NOTE | 2021-01-26 09:09 | DSE_ITS ---
Date of service: 01/26/21 Time of Service: 09:10 DS: Diagnosis Discharge Diagnosis (1) Term of female : Status: Acute Asessment and Plan: Surrogate and delivery. Voiding without d ifficulty. pumping breastmilk to be fed to the baby by her parents. Cira feels well and denies discomfort. She denies history of post depression. A - stable mother and baby , Post day 1. Surrogate and P - Discharge to home today. Routine post instructions. [facility] 2 and 6 weeks. Discharge Plan Discharge Details Reason For Visit: Irregular uterine contractions at term Admit Date/Time: 01/25/21 10:27 Admit Provider: Vanesa Cardoza Attending Provider: Vanesa Cardoza Primary Care Provider: Nusrat Tapia Home Meds and New Rx's Prescriptions: No Action cholecalciferol (vitamin D3) 1,000 unit capsule 1,000 unit PO DAILY RF: 0 prenat.vits,cristian,oiv-hrkh-ijvar tablet 1 tab PO DAILY RF: 0 aspirin [Adult Low Dose Aspirin] 81 mg tablet,delayed release (DR/EC) 81 mg PO DAILY RF: 0 Discharge Instructions Stand Alone Forms: BC Post Vaginal Deliver Activity:: Activity as Tolerated Activity:: Activity as Tolerated Equipment/Supplies:: No Equipment Needed Diet:: As Tolerated OB:DS Summary Summary Vaginal Delivery Method: Spontaneaous Episiotomy Description: None Laceration Description: None Laceration Extension: N/A Contraception Discussed Contraception Discussed: Yes (partner has had vasectomy), [place] Gender-Baby A: Female weight: 11 lb 5.837 oz Status at Discharge Functional status at discharge: independent ambulation Overall status at discharge: patient is back to baseline Mental Status: mental status grossly normal Speech and Movement: speech and movement normal Mood: congruent mood Affect: normal affect Exam Physical Exam Vital signs: Temp Pulse Resp BP Pulse Ox 98.8 F 77 14 132/84 96 01/26/21 07:30 01/26/21 07:30 01/26/21 07:30 01/26/21 07:30 01/25/21 13:03 Vital Signs Reviewed: Yes Constitutional Constitutional: no acute distress Respiratory Exam Respiratory Exam: Normal Cardiovascular Exam Cardiovascular Exam: Normal Abdominal Exam Abdomen: Diastasis Fundal Exam Fundus: Firm Extremities Exam Extremity Exam: Normal Skin Exam Skin Exam: Normal Psychiatric Exam Psychiatric Exam: Normal [facility] Medical History Elderly multigravida in first trimester History of tobacco use Problem with vaginal pessary unable to successfully fit. Pt referred to [facility] [place] [facility]. Uterine prolapse 12/2019. Unable to find pessary that will fit. Pt wants to postpone surgery until she has completed childbearing. Will refer to [facility] [place] [facility]. Social History Smoking/Tobacco Use Status: Former Tobacco Use Tobacco: How many years used: 15 Smoking risk assessment performed?: Yes Alcohol Intake: former Substance use type: does not use Number of Children: 4 Female Reproductive History Menstrual control method: none History History 5 Para 5 Hx # Term Pregnancies 5 Multiple births 0 Hx # Pregnancies 0 Ectopic pregnancies 0 AB induced 0 Hx Number of Living Children 5 AB spontaneous 0 Past Pregnancies Del. Date GA/Weeks # Outcome Route Wgt Sex Labor Lgth Anesthes ia Location Prov Complic Unknown 01/31/09 40 No Successful vaginal 8 lb 12 oz Female [address] [place] [address] 09/01/10 40 No Successful vaginal 8 lb 10 oz Male 08/15/13 41 No Successful vaginal 8 lb 2 oz Female home 10/03/15 40 No Successful vaginal 8 lb 8 oz Female home 12/18/18 39 No Successful vaginal 11 lb 3 oz Female w/o c/o. Vanesa Martinez CNM Delivery Date: surrogate Vanesa Martinez Delivery Date: 01/31/09 Cindy w/o c/o audi al MICHI EDMOND Delivery Date: 09/01/10 [place] [facility] MICHI Melvin Delivery Date: 08/15/13 Tanya home MICHI EDMOND Delivery Date: 10/03/15 precipitous Erika TrentonVanesa rojo Delivery Date: 12/18/18 w/o c/o. MICHI EDMOND DS: Data Vitals/I&O Vitals and I&O: Vital Signs Temperature 98.8 F 01/26/21 07:30 Pulse 77 01/26/21 07:30 Pulse Rhythm Regular 01/26/21 07:30 Respiratory Rate 14 01/26/21 07:30 Blood Pressure 132/84 01/26/21 07:30 Blood Pressure Mean 100 01/26/21 07:30 Pulse Oximetry 96 01/25/21 13:03 Intake & Output 01/25/21 01/25/21 01/26/21 11:59 23:59 11:59 Intake Total 750 / 750 Output Total 350 / 350 Balance 400 / 400 Intake: Oral 750 / 750 Output: Urine 350 / 350 Data Completed and Pending Labs on day of discharge: Labs from last 24 hours 01/25/21 01/25/21 01/25/21 11:08 10:50 10:50 WBC 10.47 RBC 4.00 Hgb 12.5 Hct 37.0 MCV 92.5 MCH 31.3 MCHC 33.8 RDW 13.1 Plt Count 171 MPV 11.0 COVID-19 Source Nasal/nares SARS-CoV-2 (PCR) Negative Patient ABO/Rh B Positive Antibody Screen Negative
== END 2021-01-26 10:35 | disposition home or self-care (01) | DRG 807 ==
LOC: OBS 12:18
PROVIDERS: Admitting Provider Advanced Practice Midwife; PCP Nurse Practitioner Family; Visit Provider Advanced Practice Midwife
DX: O80 Encounter for full-term uncomplicated delivery (principal); Z37.0 Single live birth; Z3A.39 39 weeks gestation of pregnancy
CPT/HCPCS: 36415; 85027; 86850; 86900; 86901; 87635; J2590

== ENCOUNTER 2022-04-21 17:58 | Outpatient (REF) | payer OTHER, SELFPAY ==
[2022-04-21 15:24] LABS: Abs Immature Grans 0.01 10^3/uL (0.0-0.06); Absolute Basophil Count 0.03 10^3/uL (0.0-0.2); Absolute Eosinophil Count 0.23 10^3/uL (0.0-0.7); Absolute Lymphocyte Count 2.21 10^3/uL (1.2-3.4); Absolute Monocyte Count 0.32 10^3/uL (0.1-0.8); Absolute Neutrophil Count 2.64 10^3/uL (1.2-6.7); Basophils % 0.6; Eosinophils % 4.2; HCT 42.2 % (36.0-46.0); HGB 14.1 g/dL (11.2-15.7); Immature Grans % 0.2; Lymphocytes % 40.6; MCH 30.5 pg (27.0-33.0); MCHC 33.4 % (32.0-36.0); MCV 91 fL (80-95); Monocytes % 5.9; Neutrophils % 48.5; Platelet Count 228 10^3/uL (130-400); RBC 4.63 10^6/uL (3.93-5.22); RDW 12.6 % (11.7-14.6); WBC 5.44 10^3/uL (4.4-10.8)
[2022-04-21 15:49] LABS: Anion Gap 8.5 mmol/L (3-11); CO2 27.5 mmol/L (21.0-32.0); Chloride 104 mmol/L (98-107); Potassium 4.3 mmol/L (3.5-5.1); Sodium 140 mmol/L (136-145)
[2022-04-21 16:39] LABS: ALT 28 U/L (14-59); AST 16 U/L (15-37); Albumin 3.9 g/dL (3.4-5.0); Alkaline Phosphatase 52 U/L (46-116); BUN 13 mg/dL (7-18); Bilirubin, Total 0.4 mg/dL (0.2-1.0); CREATININE 0.6 mg/dL (0.55-1.02); Calcium 8.8 mg/dL (8.5-10.1); Glucose 96 mg/dL (74-106); TSH (W/Ref FT4) 1.96 uIU/mL (0.36-3.74); Total Protein 7.3 g/dL (6.4-8.2); Vitamin B12 332 pg/mL (193-986)
== END 2022-04-21 17:59 | disposition home or self-care (01) ==
LOC: NCHCN 17:58
PROVIDERS: PCP Nurse Practitioner Family; Visit Provider Family Medicine
DX: R20.2 Paresthesia of skin (principal)
CPT/HCPCS: 80053; 82607; 84443; 85025

== ENCOUNTER 2022-05-17 14:52 | Outpatient (REF) | payer OTHER, SELFPAY ==
[2022-05-17 19:56] LABS: C-Reactive Protein 0.25 mg/dL (0.0-0.3); Creatine Kinase 64 U/L (26-192)
[2022-05-17 21:06] LABS: Hemoglobin A1C 5.5 % (<5.7)
[2022-05-17 22:55] LABS: ESR 10 mm/hr (0-20)
[2022-05-18 18:02] LABS: Rheumatoid Factor <8.6 IU/mL (<12.0)
[2022-05-19 10:15] LABS: Lyme Ab w Rflx to Lyme Confirm Negative (Negative)
[2022-05-19 15:44] LABS: ANA Interpretation Negative (Negative)
[2022-05-21 17:14] LABS: Anaplasma phagocytophilum Negative (Negative); B. miyamotoi PCR Negative (Negative); Babesia divergens/MO-1 Negative (Negative); Babesia duncani Negative (Negative); Babesia microti Negative (Negative); Ehrlichia chaffeensis Negative (Negative); Ehrlichia ewingii/canis Negative (Negative); Ehrlichia muris eauclairensis Negative (Negative)
== END 2022-05-17 14:53 | disposition home or self-care (01) ==
LOC: NCHCN 14:52
PROVIDERS: PCP Nurse Practitioner Family; Visit Provider Nurse Practitioner Family
DX: R53.1 Weakness (principal); R20.2 Paresthesia of skin; R41.89 Other symptoms and signs involving cognitive functions and awareness; R27.9 Unspecified lack of coordination
CPT/HCPCS: 82550; 85652; 87798; 83036; 86038; 86140; 86431; 86618

== ENCOUNTER 2023-02-05 12:56 | Outpatient (CLI) | payer OTHER, SELFPAY ==
[2023-02-06 12:07] LABS: SS-B (La) Ab, IgG 1.3 Units (<20.0)
[2023-02-06 12:18] LABS: SS-A Antibody 1.4 Units (<20.0)
== END 2023-02-05 12:57 | disposition home or self-care (01) ==
LOC: LBO 12:56
PROVIDERS: PCP Nurse Practitioner Family; Visit Provider Registered Nurse Maternal Newborn
DX: R20.0 Anesthesia of skin (principal); R20.2 Paresthesia of skin
CPT/HCPCS: 36415; 86235

== ENCOUNTER 2023-03-13 08:43 | Outpatient (REF) | payer OTHER, SELFPAY ==
--- NOTE | 2023-03-13 08:00 | LIPBX_PTH ---
PATIENT: Cira Batista LOC: [facility] U#:[id number] AGE/SX: 42/F ROOM: RE03/13/[address]: Vernon Clark MD : 1980 BED: DIS: 03/13/2023 SPEC #: [id number] RECD: 03/13/23 13:50 STATUS: ALTAGRACIA RELeigh #: [id number] REMEDIOS: 03/13/23 08:[address]: Vernon Clark DEPT: Surgical Specimen RECD BY: Suzy Connell ENTERED: 03/13/23 13:51 SP TYPE: LIPBX OTHR DR: Rodriguez Mcknight Abby Tissues: 1 - LIP BIOPSY/RESECTION Procedures: GROSS AND MICRO LEVEL 4 Comments: [id number]
== END 2023-03-13 08:44 | disposition home or self-care (01) ==
LOC: LBN 08:43
PROVIDERS: PCP Nurse Practitioner Family; Visit Provider Otolaryngology
DX: R20.2 Paresthesia of skin (principal)
CPT/HCPCS: 88305

== ENCOUNTER 2024-10-23 14:26 | Outpatient (REF) | payer BC, SELFPAY ==
--- NOTE | 2024-10-23 12:30 | PAPFT_PTH ---
PATIENT: Cira Batista LOC: [facility] U#:[id number] AGE/SX: 43/F ROOM: RE10/23/[address]: Nusrat Tapia : 1980 BED: DIS: 10/23/2024 SPEC #: [id number] RECD: 10/24/24 17:14 STATUS: ALTAGRACIA REQ #: [id number] REMEDIOS: 10/23/24 12:[address]: Nusrat Tapia DEPT: [facility] Cytology RECD BY: Suzy Connell Tissues: 1 - CX/ENDOCX FOR PAP SMEARS Procedures: PAP THIN PREP/[facility] Screening HPV DNA PROBE Comments: [id number] (HPV 16 & 18/45)
[2024-10-23 22:03] LABS: HCT 41.7 % (36.0-46.0); HGB 13.5 g/dL (11.2-15.7); MCH 30.5 pg (27.0-33.0); MCHC 32.4 % (32.0-36.0); MCV 94 fL (80-95); MPV 11.1 fL (8.0-11.0); Platelet Count 179 10^3/uL (130-400); RBC 4.42 10^6/uL (3.93-5.22); RDW 11.9 % (11.7-14.6); RDW-SD 41.5 fL; WBC 6.83 10^3/uL (4.4-10.8)
[2024-10-23 22:18] LABS: ALT 33 U/L (14-59); AST 17 U/L (15-37); Alkaline Phosphatase 64 U/L (46-116); Anion Gap 8.1 mmol/L (3-11); BUN 17 mg/dL (7-18); Bilirubin, Total 0.37 mg/dL (0.2-1.0); CO2 29.9 mmol/L (21.0-32.0); CREATININE 0.8 mg/dL (0.55-1.02); Calcium 9.4 mg/dL (8.5-10.1); Calculated LDL 140 mg/dL (<100); Chloride 104 mmol/L (98-107); Cholesterol 225 mg/dL (<200); Glucose 93 mg/dL (74-106); HDL Cholesterol 70 mg/dL (40-60); Sodium 142 mmol/L (136-145); Triglyceride 75 mg/dL (<150)
== END 2024-10-23 14:27 | disposition home or self-care (01) ==
LOC: NCHCN 14:26
PROVIDERS: PCP Nurse Practitioner Family; Visit Provider Nurse Practitioner Family
DX: Z00.00 Encounter for general adult medical examination without abnormal findings (principal); E78.5 Hyperlipidemia, unspecified; Z11.51 Encounter for screening for human papillomavirus (HPV); Z01.419 Encounter for gynecological examination (general) (routine) without abnormal findings
CPT/HCPCS: 80053; 80061; 85027; 88142; 87624

== ENCOUNTER 2024-11-20 01:17 | Outpatient (CLI) | payer BC, SELFPAY ==
--- NOTE | 2024-11-20 08:40 | DI.MAMMO_ITS ---
Exam(s) MAMMO SCREENING EXAM: MAMMO SCREENING CLINICAL HISTORY: SCREENING, Z12.31 TECHNIQUE: Mammograms were interpreted according to the usual protocol including computer analysis w [employer] CAD system, tomosynthesis and C-view imaging. COMPARISON: No exams were available for comparison. Baseline examination. FINDINGS: The breasts are composed of scattered fibroglandular densities, Breast Density category B. No suspicious masses or suspicious microcalcifications are seen. No skin thickening or abnormal axillary lymph nodes are seen. IMPRESSION: BI-RADS Category 1, Negative mammogram Yearly screening mammography is recommended. Breast Density - Category B, scattered fibroglandular densities. A negative radiographic report should not delay biopsy if a dominant or clinically suspicious mass is present. Up to ten percent of cancers are not identified on mammography. A negative report may reinforce clinical impression. Adenosis and dense breasts may obscure an underlying neoplasm. False positive reports average 6 to 10%. Patient will receive a letter notifying them of these results.
== END 2024-11-20 01:37 ==
LOC: DI 01:17
PROVIDERS: PCP Nurse Practitioner Family; Visit Provider Nurse Practitioner Family
DX: Z12.31 Encounter for screening mammogram for malignant neoplasm of breast (principal); R92.323 Mammographic fibroglandular density, bilateral breasts
CPT/HCPCS: 77063; 77067